=== PATIENT | female | born 1940 | race Caucasian/White ===

== ENCOUNTER 2017-09-20 16:51 | Emergency (ER) | payer MEDICARE, OTHER ==
[~2017-09-20] VITALS: Ht 165.1 cm; Wt 90.7 kg
[2017-09-20] MEDS ORDERED: BACTRIM 400-801 EACH PO (17:04)
[2017-09-20] MEDS ORDERED: LIPITOR40 MG PO (17:05)
[2017-09-20] MEDS ORDERED: CALCIUM 500 +1 EAC5 PO (17:05)
[2017-09-20] MEDS ORDERED: CO Q-10100 MG PO (17:06)
[2017-09-20] MEDS ORDERED: VITAMIN D3400 UNIT PO (17:06)
[2017-09-20] MEDS ORDERED: FOLIC ACID1 MG PO (17:07)
[2017-09-20] MEDS ORDERED: FISH OIL 1,001000 M2 PO (17:07)
[2017-09-20] MEDS ORDERED: NEURONTIN 300300 M1 PO (17:08)
[2017-09-20] MEDS ORDERED: NEURONTIN600 MG PO (17:08)
[2017-09-20] MEDS ORDERED: COZAAR 50 MG TA50 M2 PO (17:09)
[2017-09-20] MEDS ORDERED: IRON325 PO (17:09)
[2017-09-20] MEDS ORDERED: GARLIC1 EACH PO (17:09)
[2017-09-20] MEDS ORDERED: GLUCOPHAGE XR500 MG PO (17:10)
[2017-09-20] MEDS ORDERED: NORTRIPTYLINE H10 M2 PO (17:10)
[2017-09-20] MEDS ORDERED: ZANAFLEX2 MG PO (17:11)
[2017-09-20] MEDS ORDERED: ONE-A-DAY WOMENS PO (17:11)
[2017-09-20] MEDS ORDERED: POTASSIUM GLUC500 MG PO (17:11)
[2017-09-20] MEDS ORDERED: TRAMADOL 50 MG50 MG PO (17:12)
[2017-09-20] MEDS ORDERED: TURMERIC538 MG PO (17:13)
[2017-09-20 17:14] LABS: HEMATOCRIT 39.8 % (37.0-47.0); HEMOGLOBIN 13.6 gm/dL (12.0-15.0); MCH 30.8 pg (26.0-34.0); MCHC 34.2 g/dL (28.0-37.0); MCV 90.2 fL (80.0-100.0); MPV 8.3 fl. (7.2-11.1); NUCLEATED RBCS 0 /100WBC; PLATELET COUNT* 180 thou/uL (150-400); RBC 4.41 mil/uL (4.20-5.00); WBC 4.1 thou/uL (4.0-11.0)
[2017-09-20] MEDS ORDERED: NORVASC5 MG PO (17:14)
[2017-09-20] MEDS ORDERED: ZEGERID OTC 201 EACH PO (17:14)
[2017-09-20] MEDS ORDERED: B12INJ IM (17:14)
[2017-09-20 17:23] LABS: CALCIUM 8.7 mg/dL (8.5-10.1); CREATININE 1.2 mg/dL (0.6-1.3); POTASSIUM 4.3 mmol/L (3.5-5.1)
[2017-09-20 17:24] LABS: URINE BILIRUBIN NEGATIVE (Negative); URINE BLOOD NEGATIVE (Negative); URINE CLARITY SL CLOUDY; URINE COLOR YELLOW; URINE GLUCOSE-RANDOM NEGATIVE (Negative); URINE KETONES NEGATIVE (Negative); URINE LEUKOCYTES-REFLEX NEGATIVE (Negative); URINE NITRITE-REFLEX NEGATIVE (Negative); URINE PROTEIN TRACE (Negative); URINE SPECIFIC GRAVITY >= 1.030 (1.005-1.030); URINE UROBILINOGEN 0.2 E.U./dl (0.2-1.0)
[2017-09-20 17:28] LABS: ALBUMIN 3.5 g/dL (3.4-5.0); TOTAL BILIRUBIN 0.3 mg/dL (<0.1-1.0); TOTAL PROTEIN 7.1 g/dL (6.4-8.2)
[2017-09-20 17:44] LABS: SQUAMOUS >10 Many /LPF (0-3)
[2017-09-20 17:45] LABS: CRYSTALS None Seen /LPF (None Seen); HYALINE CASTS 0-3 Few /LPF (None Seen); MUCUS 0-3 Light strn/LPF (None Seen)
[2017-09-20 17:46] LABS: URINE WBC-REFLEX 0-5 Rare /HPF (0-5); YEAST-REFLEX Present (None Seen)
[2017-09-20 17:47] LABS: URINE RBC None Seen /HPF (0-2)
[2017-09-20 17:48] LABS: ABSOLUTE LYMPHOCYTES 0.7 thou/uL (0.8-5.3); ABSOLUTE MONOCYTES 0.7 thou/uL (0.0-1.2); ABSOLUTE NEUTROPHILS 2.6 thou/uL (1.6-8.1); ATYPICAL LYMPHS 4 %; PLATELET ESTIMATE ADEQUATE
[2017-09-20] MEDS ORDERED: DIFLUCAN150 MG PO (18:33)
[2017-09-20 18:49] VITALS: BP 109/63
== END 2017-09-20 18:50 | disposition home or self-care (01) ==
LOC: M.ERS 16:51
PROVIDERS: Physician Assistant
DX: B37.9 Candidiasis, unspecified (principal); R91.8 Other nonspecific abnormal finding of lung field; M54.9 Dorsalgia, unspecified; I10 Essential (primary) hypertension; E78.5 Hyperlipidemia, unspecified; Z90.710 Acquired absence of both cervix and uterus; Z90.49 Acquired absence of other specified parts of digestive tract; Z96.653 Presence of artificial knee joint, bilateral

== ENCOUNTER → 2017-10-02 | Outpatient (CLI) | payer MEDICARE, OTHER ==
[~2017-10-02] MED LIST: B12INJ IM; BACTRIM 400-801 EACH PO; CALCIUM 500 +1 EAC5 PO; CO Q-10100 MG PO; COZAAR 50 MG TA50 M2 PO; DIFLUCAN150 MG PO; FISH OIL 1,001000 M2 PO; FOLIC ACID1 MG PO; GARLIC1 EACH PO; GLUCOPHAGE XR500 MG PO; IRON325 PO; LIPITOR40 MG PO; NEURONTIN 300300 M1 PO; NEURONTIN600 MG PO; NORTRIPTYLINE H10 M2 PO; NORVASC5 MG PO; ONE-A-DAY WOMENS PO; POTASSIUM GLUC500 MG PO; TRAMADOL 50 MG50 MG PO; TURMERIC538 MG PO; VITAMIN D3400 UNIT PO; ZANAFLEX2 MG PO; ZEGERID OTC 201 EACH PO
[2017-10-02 10:38] LABS: CREATININE 0.9 mg/dL (0.6-1.3)
== END ==
LOC: M.LAB 09:51 → M.CT 11:00
PROVIDERS: Internal Medicine
DX: R91.1 Solitary pulmonary nodule (principal); I70.0 Atherosclerosis of aorta; I77.810 Thoracic aortic ectasia; I34.8 Other nonrheumatic mitral valve disorders; M47.894 Other spondylosis, thoracic region; M19.012 Primary osteoarthritis, left shoulder; R91.8 Other nonspecific abnormal finding of lung field; I10 Essential (primary) hypertension; E78.5 Hyperlipidemia, unspecified; Z90.49 Acquired absence of other specified parts of digestive tract

== ENCOUNTER → 2018-01-24 | Outpatient (CLI) | payer MEDICARE, OTHER ==
--- NOTE | 2018-01-24 18:13 | 2DMMODE ---
[place] [address] 2 D/M-MODE ECHOCARDIOGRAM Name: JOE LUA Room: [facility]#: [id number] Admission: 01/24/18 Attend Phys: Davian Melgoza, Discharge: Date of : 42 Date of Service: 01/24/18 181 Report #: [id number] THIS REPORT FOR: //name// APPROVED REPORT Study performed: 01/24/2018 14:32:10 EXAM: Comprehensive 2D, Doppler, and color-flow Echocardiogram Patient Location: Out-Patient Status: routine BSA: 1.90 HR: 64 bpm BP: 140/80 mmHg Other Information Study Quality: Good Indications Murmur 2D Dimensions LVEF(%): 59.15 (>50%) IVSd: 16.89 (7-11mm) LVOT Diam: 19.25 (18-24mm) LVDd: 37.54 mm PWd: 10.51 (7-11mm) Ascending Ao: 31.20 (22-36mm) LVDs: 25.99 (25-40mm) Aortic Root: 30.55 mm Myles's LVEF: 59.15 % Volumes Left Atrial Volume (Systole) LA ESV Index: 29.30 mL/m2 Aortic Valve AoV Peak John.: 1.50 m/s AO Peak Gr.: 8.97 mmHg LVOT Max P.43 mmHg AO Mean Gr.: 5.41 mmHg LVOT Mean P.20 mmHg LVOT Max V: 1.05 m/s AO V2 VTI: 32.34 cm LVOT Mean V: 0.68 m/s JOSEFINA (VTI): 2.22 cm2 LVOT V1 VTI: 24.70 cm Mitral Valve MV Peak Gr.: 4.84 mmHg MV Mean Gr.: 2.08 mmHg E/A Ratio: 0.83 [place] [address] 2 D/M-MODE ECHOCARDIOGRAM Name: JOE LUA Room: [facility]#: [id number] Admission: 01/24/18 Attend Phys: Davian Melgoza, Discharge: Date of : 42 Date of Service: 01/24/18 1812 Report #: [id number] MV Decel. Time: 234.13 ms MV E Max John.: 0.80 m/s MV PHT: 67.90 ms MVA (PHT): 3.24 cm2 TDI E/Lateral E': 8.00 E/Medial E': 5.71 Medial E' John.: 0.14 m/s Lateral E' John.: 0.10 m/s Pulmonary Valve PV Peak John.: 0.82 m/s PV Peak Gr.: 2.68 mmHg Tricuspid Valve TR Peak Gr.: 20.90 mmHg RVSP: 25.90 mmHg Left Ventricle The left ventricle is normal size. There is normal LV segmental wall motion. There is normal left ventricular wall thickness. Left ventricular systolic function is normal. The left ventricular ejection fraction is within the normal range. LVEF is 55-60%. Grade I - abnormal relaxation pattern. Right Ventricle The right ventricle is normal size. The right ventricular systolic function is normal. Atria Left atrium is mildly dilated. The right atrium size is normal. Aortic Valve The Aortic valve is sclerotic. Mild aortic regurgitation. There is no aortic valvular stenosis. Mitral Valve There is mitral annular calcification. Mild mitral regurgitation. No evidence of mitral valve stenosis. Tricuspid Valve The tricuspid valve is normal in structure. Mild tricuspid regurgitation. The RVSP is _25.9 mmHg. Pulmonic Valve The pulmonary valve is normal in structure. [place] [address] 2 D/M-MODE ECHOCARDIOGRAM Name: [facility]E LUA [id number] Admission: 01/24/18 Attend Phys: Davian Melgoza, Discharge: Date of : 42 Date of Service: 01/24/18 181 Report #: [id number] Great Vessels The aortic root is normal in size. IVC is normal in size and collapses with >50% inspiration Pericardium There is no pericardial effusion. <Conclusion> LVEF is 55-60%. Left atrium is mildly dilated. The Aortic valve is sclerotic. Mild aortic regurgitation. Mild mitral regurgitation. <ELECTRONICALLY SIGNED> By: Davian Solitario MD, [facility] 01/24/181811 11 11 Davian Solitario MD, FACC /INF
== END ==
LOC: M.CRD 01-11 13:38
DX: I08.3 Combined rheumatic disorders of mitral, aortic and tricuspid valves (principal); I10 Essential (primary) hypertension; E78.5 Hyperlipidemia, unspecified; R91.8 Other nonspecific abnormal finding of lung field; R42 Dizziness and giddiness

== ENCOUNTER → 2018-04-04 | Outpatient (CLI) | payer MEDICARE, OTHER | LOC: M.CT 14:29 | DX: R91.8 Other nonspecific abnormal finding of lung field (principal); I08.0 Rheumatic disorders of both mitral and aortic valves; I25.10 Atherosclerotic heart disease of native coronary artery without angina pectoris; M47.894 Other spondylosis, thoracic region; Z96.612 Presence of left artificial shoulder joint ==

== ENCOUNTER 2018-12-02 00:16 | Inpatient (IN) | payer MEDICARE, OTHER ==
[2018-12-02] VITALS (7 sets, daily range): BP systolic 144–180; BP diastolic 67–94
[~2018-12-02] VITALS: Ht 165.1 cm; Wt 86.1 kg
[2018-12-02 00:45] LABS: ABSOLUTE BASOPHILS 0.1 thou/uL (0.0-0.2); ABSOLUTE EOSINOPHILS 0.3 thou/uL (0.0-0.7); ABSOLUTE LYMPHOCYTES 1.1 thou/uL (0.8-5.3); ABSOLUTE MONOCYTES 0.9 thou/uL (0.0-1.2); ABSOLUTE NEUTROPHILS 5.5 thou/uL (1.6-8.1); BASOPHILS 0.9 %; EOSINOPHILS 3.3 %; HEMATOCRIT 40.8 % (37.0-47.0); HEMOGLOBIN 13.9 gm/dL (12.0-15.0); LYMPHOCYTES 14.4 %; MCH 30.8 pg (26.0-34.0); MCV 90.6 fL (80.0-100.0); MONOCYTES 11.6 %; NUCLEATED RBCS 0 /100WBC; PLATELET COUNT* 202 thou/uL (150-400); POLYS 69.8 %; RDW-CV 13.1 % (10.5-14.5); WBC 7.8 thou/uL (4.0-11.0)
[2018-12-02 01:02] LABS: ANION GAP 9 mmol/L (7-16); BUN 20 mg/dL (7-18); CALCIUM 8.7 mg/dL (8.5-10.1); CHLORIDE 104 mmol/L (98-107); CO2 32 mmol/L (21-32); CREATININE 1.1 mg/dL (0.6-1.3); GLUCOSE 120 mg/dL (70-99); POTASSIUM 3.4 mmol/L (3.5-5.1); SODIUM 145 mmol/L (136-145); TROPONIN-I LEVEL <0.06 ng/mL (<0.06)
[2018-12-02 01:06] LABS: ALBUMIN 3.7 g/dL (3.4-5.0); ALKALINE PHOSPHATASE 111 U/L (46-116); CK-MB MASS 4.4 ng/mL (<0.5-3.6); LIPASE 164 U/L (73-393); MAGNESIUM 1.7 mg/dL (1.8-2.4); NT-PRO BRAIN NAT PEPTIDE 272 pg/mL (<300); SGOT 24 U/L (15-37); SGPT 25 U/L (30-65); TOTAL BILIRUBIN 0.3 mg/dL (<0.1-1.0)
[2018-12-02 01:31] LABS: PROTIME 10.6 Seconds (9.20-11.50)
--- NOTE | 2018-12-02 05:41 | NUR ---
Pt states she is experiencing heart palpitations continuously. Denies pain. VSS. Reports intermittent palpitations over the past 2-3 weeks, but more intense last night, which prompted her to come to ER. Also reports edema to lower extremities which began a few weeks ago. NS running at 100 mls/hr. NPO for cardiology consult. 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 Encouraged to call with any chest pain or change in symptoms. Will continue to monitor.
--- NOTE | 2018-12-02 17:50 | EKG ---
[place] [address] ELECTROCARDIOGRAM REPORT Name: JOE LUA Room: [address] ADM IN [facility].#: [id number] Admission: 12/02/18 Attend Phys: Chanel Mckeon MD Discharge: Date of : 42 Report #: [id number] THIS REPORT FOR: //name// [facility] ED Test Date: 2018-12-02 Test Time: 00:42:18 Pat Name: JOE LUA Department: Room: [facility] Gender: F [employer] Teacher: : 1940 Requested By: Roberto Soriano Order Number: [id number] MD: Davian Solitario Measurements Intervals [place] Rate: 101 P: 61 [place]: 187 QRS: -42 QRSD: 147 T: 9 QT: 380 QTc: 493 Interpretive Statements Sinus tachycardia Left atrial enlargement RBBB and LAFB Left ventricular hypertrophy No previous ECG available for comparison Electronically Signed On 12-02-2018 17:49:54 CDT by Davian Solitario [email or web address] <ELECTRONICALLY SIGNED> By: Davian Solitario MD, [facility] 12/02/18 1749 0042 0042 Davian Solitario MD, FAC /EPI
--- NOTE | 2018-12-02 18:34 | NUR ---
I ASSUMED CARE OF THE PATIENT AT 0700. SHE IS ALERT AND ORIENTED X4 AND IS UP WITH STAND BY ASSIST. THE BED IS IN THE LOW LOCKED POSITION AND CALL LIGHT IS IN REACH. HOURLY ROUNDING WAS COMPLETED AND PATIENT NEEDS WERE MET. PAIN IS MANAGED WITH PRN MEDS. SHE WAS SEEN BY CARDIOLOGY AND TESTS WILL BE DONE ON MONDAY. SHE IS NPO AT MIDNIGHT. DOPPLER OF LOWER EXTREMITIES IS NEGATIVE. ELECTROLYTES WERE REPLACED. SHE IS PROGRESSING TOWARD GOALS. WILL CONTINUE TO MONITOR.
[2018-12-03] VITALS: BP 132/58
[2018-12-03 04:00] VITALS: BP 134/66
--- NOTE | 2018-12-03 05:10 | NUR ---
ASSUMED PT CARE AT 190. PT VOICED NO CONCERNS THIS SHIFT. CARDIA MONIOR IN PLACE, TRACING SR WITH 1ST DEGREE AV BLOCK AND BBB. PT VOICED NO CONCERNS THIS SHIFT. REPOSITINING Q2H COMPLETED. CALL LIGHT WITHIN REACH. PT NPO FOR STRESS TEST IN AM. PT AWARE AND VERBALIZED UNDERSTANDING.
[2018-12-03 05:16] LABS: ABSOLUTE EOSINOPHILS 0.2 thou/uL (0.0-0.7); ABSOLUTE LYMPHOCYTES 1.1 thou/uL (0.8-5.3); ABSOLUTE MONOCYTES 0.5 thou/uL (0.0-1.2); ABSOLUTE NEUTROPHILS 1.9 thou/uL (1.6-8.1); HEMATOCRIT 35.4 % (37.0-47.0); MCH 31.2 pg (26.0-34.0); MCHC 33.9 g/dL (28.0-37.0); MCV 91.9 fL (80.0-100.0); MONOCYTES 13.6 %; MPV 8.5 fl. (7.2-11.1); NUCLEATED RBCS 0 /100WBC; PLATELET COUNT* 153 thou/uL (150-400); POLYS 50.4 %; RBC 3.85 mil/uL (4.20-5.00); RDW-CV 13.2 % (10.5-14.5); WBC 3.8 thou/uL (4.0-11.0)
[2018-12-03 05:17] LABS: CALCIUM 8.1 mg/dL (8.5-10.1); CREATININE 0.9 mg/dL (0.6-1.3); MAGNESIUM 1.6 mg/dL (1.8-2.4); POTASSIUM 3.8 mmol/L (3.5-5.1)
--- NOTE | 2018-12-03 05:35 | NUR ---
ASSUMED PT CARE AT 1930. NURSING ASSESSMENT COMPLETED AT START OF SHIFT. PT VOICED NO CONCERNS. AUDIO TAPE LIBRARIAN IN PLACE, TRACING SINUS RHYTHM WITH 1D AND BBB. HOURLY ROUNDING COMPLETED, CALL LIGHT WITHIN REACH. PT NPO AFTER MIDNIGH FOR CARDIAC STRESS TEST AND ECHO. PT EDUCATED AND VERBALIZED UNDERSTANDING.
[2018-12-03 08:05] VITALS: BP 135/69
--- NOTE | 2018-12-03 08:15 | NUR ---
RECEIVED REPORT FROM MORTGAGE COLLECTOR NURSE AND ASSUMED CARE OF PT AT 0735.PT IS A/OX4.TRACING SR ON THE MONITOR.UP STAND BY ASSIST.NPO SINCE MIDNIGHT FOR CARDIC PROCEDURE.ON 2 L NC. IV PATENT WITH IV FLUIDS INFUSING AT 100ML/HR.NO COMPLIANTS OF PAIN.NO COMPLAINTS OF PALPITATION.CLEAR LUNGS SOUNDS.CALL LIGHT AND FALL PRECAUTIONS IN PLACE.WILL CONTINUE TO MONITOR.
[2018-12-03 16:23] VITALS: BP 149/67
[2018-12-03 17:02] VITALS: BP 149/67
--- NOTE | 2018-12-03 18:17 | NUR ---
STRESS TEST NEGETIVE .PT OK FOR DISCHARGE.DISCHARGE PAPER WORK COMPLETED AND EDUCATION PROVIDED TO PT ABOUT CARDIOLOGY FOLLOW UP.IV AND HEART MONITOR REMOVED.ALL PERSONAL BELONGINGS GIVEN TO PT.PT WHELLED OUT TO CAR BY NURSING STAFF.
--- NOTE | 2018-12-03 18:21 | NUR ---
THIS NURSE REVIEWED ORIENTEE NURSE COLLINS'S CHARTING AND NURSING NOTES AND AGREES WITH INFORMATION.
--- NOTE | 2018-12-04 09:31 | CARDNUC ---
[place] [address] CARDIAC NUCLEAR IMAGING REPORT Name: JOE LUA Room: [address] IN [facility]#: [id number] Admission: 12/02/18 Attend Phys: Chanel Mckeon MD Discharge: 12/03/18 Date of : 42 Date of Service: 12/04/18 0930 Report #: [id number] THIS REPORT FOR: //name// APPROVED REPORT Imaging Protocol: Rest Tc-99m/Stress Tc-99m 1 day Study performed: 12/02/2018 13:59:00 Indication: Chest pain, Heart Palpitations. Patient Location: In-Patient Room #: [facility] Stress Tech: Bijal oMss Stress Nurse: Josephine Hernandez RN Ht: 5 ft 5 in Wt: 186 lbs BSA: 1.92 m2 BMI: 30.94 Medical History Medical History: Angina, Arrhythmia, HTN, Hyperlipidemia, LE edema, RBBB, CVD. Medications: Amlodipine, Atorvastatin, Lovenox, Hydralazine. Allergies: No known drug allergies Cardiac Risk Factors: Age, FHX of CAD, HTN, Hyperlipidemia. Previous Cardiac Procedures: None Pretest Chest Pain Characteristics: No chest pain Exercise History: Indeterminate Physical Disabilities: Vertigo, unstable gait, dizzy. Meds Held (24 hrs): None Resting Data Rest SPECT myocardial perfusion imaging was performed in supine position 40 minutes following the intravenous injection of 10.5 mCi of Tc-99m Sestamibi. Time of rest injection: 10:05 The images were gated to evaluate regional wall motion and calculate left ventricular ejection fraction. Administration Route: IV Administration Site: Right Arm Pharmacologic Stress Pharmacologic stress test was performed by injecting Regadenoson 0.4 mg IV push over 10-15 seconds immediately followed by the intravenous injection of 34.8 mCi of Tc-99m Sestamibi. Time of stress injection: 11:50 [place] [address] CARDIAC NUCLEAR IMAGING REPORT Name: JOE LUA Room: [address] IN .R.#: [id number] Admission: 12/02/18 Attend Phys: Chanel Mckeon MD Discharge: 12/03/18 Date of : 42 Date of Service: 12/04/18 0930 Report #: [id number] Administration Route: IV Administration Site: Right Arm Heart Rate at time of stress injection: 111 bpm. Gated Stress SPECT was performed 45 minutes after stress injection. The images were gated to evaluate regional wall motion and calculate left ventricular ejection fraction. Stress Test Details Stress Test: Pharmacologic stress testing performed using 0.4 mg of regadenoson per 5 mL given IV over 10 seconds. Reason for pharmacologic stress test: Vertigo, unsteady gait, dizzy.. HR Max Heart Rate (APMHR): 143 bpm Resting HR: 66 bpm Target HR (85% APMHR): 121 bpm Max HR Achieved: 129 bpm % of APMHR: 90 Recovery HR: 97 bpm HR response to stress: Normal HR response to stress BP Resting BP: 143/81 mmHg Max BP: 185/90 mmHg Recovery BP: 177/91 mmHg BP response to stress: Normal blood pressure response to stress. ECG Resting ECG: nsr Stress ECG: nsr ST Change: none Arrhythmia: none Recovery ECG: nsr Recovery ST Change: none Recovery Arrhythmia: none Clinical Reason for Termination: Completed protocol Stress Symptoms: Flushed, head pressure. Exercise duration: 0 min 0 sec Exercise capacity: 1.00 METs Nurse Comments 78 year old female inpatient presented with c/o vertigo/dizziness leaving patient unable to walk treadmill. Patient tolerated sitting Lexiscan well. Recovery unremarkable with [place] [address] CARDIAC NUCLEAR IMAGING REPORT Name: JOE LUA Room: [address]#: [id number] Admission: 12/02/18 Attend Phys: Chanel Mckeon MD Discharge: 12/03/18 Date of : 42 Date of Service: 12/04/18 0930 Report #: [id number] escorted via wheelchair by staff to Nuclear Medicine for images. Patient stable with no complaints at that time. Stress ECG Conclusion negative ecg Study Quality Study: Good Artifact: Mild Increased GI uptake Lung Uptake: Normal Study Data At rest, the left ventricular ejection fraction was >70%.. Post stress, the left ventricular ejection was >70%.. SSS: 16 SRS: 17 SDS: -180 Perfusion Review of rest data reveals normal perfusion, without perfusion defects.Imaging obtained following vasodilator stress demonstrate a similar, uniform uptake of tracer without defects. Prone imaging was normal. LVEDV is normal.No segental wall motion abnormality seen. Wall Motion normal Nuclear Conclusion ECG Findings: negative for ischemia Clinical Findings: negative for ischemia Nuclear Findings: negative for ischemia Exercise Capacity: not assessed Left Ventricular Function: normal Risk Study: low Negative nuclear stress test for ischemia/infarct. <Conclusion> negative ecg <ELECTRONICALLY SIGNED> By: Colton Mars MD, FACC 12/04/18929 9 9 Colton Mars MD, FACC /INF
--- NOTE | 2018-12-04 14:18 | CON ---
[address] [address] CONSULTATION Name: JOE LUA Room: [address] IN M.R.#: [id number] Admission: 12/02/18 Attend Phys: Chanel Mckeon MD Discharge: 12/03/18 Date of : 42 Report #: [id number] THIS REPORT FOR: //name// CC: Davian Mckeon CARDIOLOGY CONSULTATION HISTORY OF PRESENT ILLNESS: I was asked by Dr. Mckeon to see this 78-year-old white female in Cardiology consultation for evaluation and treatment of palpitations as well as chest discomfort and throat discomfort. She has hypertension and hyperlipidemia she says. Additionally, her EKG shows right bundle branch block and left anterior fascicular block as well as left ventricular hypertrophy. She has had these kind of symptoms for about 16 years on and off. They have been worse recently. She has had several episodes lasting several hours. This particular one brought her to the Emergency Room yesterday. She said she could feel her heart racing and pounding and additionally she had a choking feeling in her neck and throat discomfort as well as upper chest discomfort that she says was like a pressure or like someone sitting on her upper chest just below her throat. That symptoms went on for several hours. She gets these episodes seldom. They are not particularly worse with activity. They are better with rest. They do occur at rest. There is no associated shortness of breath, nausea or diaphoresis. There is no relationship to food. She has never tried nitroglycerin. There is no radiation of the discomfort into her neck, back or arms. She first noticed this discomfort when her 16 years ago. She says sleep makes it better. Thinking about it makes it worse. There are no other associated symptoms and no radiation of the discomfort. She denies dyspnea on exertion, shortness of breath at rest, orthopnea or PND. She does have edema, particularly in her left ankle, she says that is chronic. She did have a blood clot behind her left knee at one time she said. Her left calf is chronically tender. She did have venous Dopplers bilaterally in the lower extremities today that were negative. She has not had syncope or near syncope. Coronary risk factors include hypercholesterolemia. She is not smoking. She does not have diabetes. She does have high blood pressures. No family history of coronary heart disease. She has not had renal disease. 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 She does have pain in her legs when she walks, but she has fibromyalgia and apparently does not have clearcut claudication. She does not have any open or nonhealing wounds. PAST MEDICAL AND SURGICAL HISTORY: She has had a hysterectomy, cholecystectomy, both knees replaced, right shoulder replaced, C6 diskectomy, right eye surgery, DVT, blood clot behind her left knee. ALLERGIES: She has no known allergies. HOME MEDICATIONS: Include amlodipine 5 mg daily, atorvastatin 40 mg daily, [place] [address] CONSULTATION Name: JOE LUA Room: [address] IN [facility].#: [id number] Admission: 12/02/18 Attend Phys: Chanel Mckeon MD Discharge: 12/03/18 Date of : 42 Report #: [id number] gabapentin 400 mg b.i.d., nortriptyline 10 mg at bedtime, omeprazole, sodium bicarbonate daily, potassium 500 mg b.i.d., tizanidine 2 mg daily p.r.n., tramadol 50 mg t.i.d. p.r.n. FAMILY HISTORY: She has no family history of coronary artery disease. SOCIAL HISTORY: She is . 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 She does not smoke, drink or use illegal drugs. REVIEW OF SYSTEMS: Positive for palpitations, chest discomfort described above, neck discomfort described above, extremity edema, thyroid trouble, blood in the stool, blood clot in a vein, anxiety, wearing glasses and she says temporary loss of vision and wearing dentures. PHYSICAL EXAMINATION: GENERAL: She presents as well-developed, well-nourished white female in no acute distress. VITAL SIGNS: Pulse was 80 and regular, blood pressure is 150/86, respirations are 18 and regular, temperature is 97.7. HEENT: Her head was atraumatic. Eyes clear. NECK: Supple. There is no jugular venous distention or hepatojugular reflux. Thyroid is not enlarged. There is no adenopathy. SKIN: Warm and dry. Mucous membranes are moist. LUNGS: Clear to auscultation and percussion. HEART: Revealed normal first and second heart sounds. There is soft S4. There is no S3. There are no murmurs, rubs, thrills, heaves or gallops. PMI is nondisplaced. ABDOMEN: Soft, flat, nontender, no palpable masses. There is no organomegaly. EXTREMITIES: Reveal no cyanosis, clubbing or edema. NEUROLOGIC: The patient mentated normally, talked normally and moved all extremities normally. Her EKG shows sinus tachycardia at 101 beats per minute. There is left atrial enlargement. There is right bundle branch block, left bundle branch block, left anterior fascicular block and left ventricular hypertrophy. Her NT-proBNP was normal at 272. Troponins were negative x 3. IMPRESSION: 1. Palpitations that probably represent sinus tachycardia. 2. Chest discomfort and throat discomfort. 3. Hypertension. 4. Hyperlipidemia. 5. Right bundle branch block and left anterior fascicular block. 6. Left ventricular hypertrophy. RECOMMENDATIONS: She should have a nuclear stress test [place] [address] CONSULTATION Name: JOE LUA Room: [address]#: [id number] Admission: 12/02/18 Attend Phys: Chanel Mckeon MD Discharge: 12/03/18 Date of : 42 Report #: [id number] recorder such as a CardioNet monitor. Thank you very much for asking me to see the patient. If you have any questions, please feel free to contact me. <ELECTRONICALLY SIGNED> By: Davian Solitario MD, FACC 12/04/18 1418 1321 [id number]. Chapin Patton MD, FACC /nt
== END 2018-12-03 18:21 | disposition home or self-care (01) | DRG 313 ==
LOC: M.ERS 00:16 → M.2W 01:12 → M.TBA-ER 01:12 → M.2W 02:32
PROVIDERS: Family Medicine; Internal Medicine; ADMIT Family Medicine
DX: R07.89 Other chest pain (principal); Z96.653 Presence of artificial knee joint, bilateral; Z96.611 Presence of right artificial shoulder joint; I44.4 Left anterior fascicular block; I11.9 Hypertensive heart disease without heart failure; M25.473 Effusion, unspecified ankle; M79.7 Fibromyalgia; I45.10 Unspecified right bundle-branch block; M19.90 Unspecified osteoarthritis, unspecified site; E78.5 Hyperlipidemia, unspecified; Z90.710 Acquired absence of both cervix and uterus; Z90.49 Acquired absence of other specified parts of digestive tract; Z86.718 Personal history of other venous thrombosis and embolism

== ENCOUNTER → 2019-03-26 | Outpatient (CLI) | payer MEDICARE, OTHER | LOC: M.MRI 08:07 | DX: R90.82 White matter disease, unspecified (principal); I10 Essential (primary) hypertension; I65.23 Occlusion and stenosis of bilateral carotid arteries; R91.8 Other nonspecific abnormal finding of lung field; E42 Marasmic kwashiorkor ==

== ENCOUNTER → 2020-03-30 | Outpatient (CLI) | payer MEDICARE, OTHER | LOC: M.RAD 16:47 | PROVIDERS: ATTEND Internal Medicine | DX: I51.7 Cardiomegaly (principal); I65.21 Occlusion and stenosis of right carotid artery; E78.5 Hyperlipidemia, unspecified; I10 Essential (primary) hypertension ==

== ENCOUNTER → 2020-04-15 | Outpatient (CLI) | payer MEDICARE, OTHER | LOC: M.CT 10:31 | PROVIDERS: ATTEND Internal Medicine | DX: R91.8 Other nonspecific abnormal finding of lung field (principal); I65.21 Occlusion and stenosis of right carotid artery; I10 Essential (primary) hypertension; E78.5 Hyperlipidemia, unspecified; I25.10 Atherosclerotic heart disease of native coronary artery without angina pectoris; Z90.49 Acquired absence of other specified parts of digestive tract ==

== ENCOUNTER → 2020-05-05 | Outpatient (CLI) | payer MEDICARE, OTHER | LOC: M.NUC 04-24 14:05 | PROVIDERS: ATTEND Internal Medicine | DX: M47.816 Spondylosis without myelopathy or radiculopathy, lumbar region (principal); M51.36 Other intervertebral disc degeneration, lumbar region; R93.89 Abnormal findings on diagnostic imaging of other specified body structures; M25.78 Osteophyte, vertebrae ==